=== PATIENT | male | born 1970 | race Caucasian/White ===

== ENCOUNTER → 2017-08-16 | Outpatient (CLI) | payer OTHER ==
[~2017-08-16] MED LIST: ARMOUR THYROID60 M1 PO; BENTYL10 MG PO; CIPROFLOXACIN500 M1 PO; HYDROCODON-ACE1 EAC7 PO; LEVOTHYROXINE 0.1 MG PO; OMEPRAZOLE40 MG PO; PERCOCET; PERCOCET 5-3251 EACH PO; PROCHLORPERAZIN10 MG; TAMSULOSIN HCL0.4 MG PO; ZOFRAN4 MG PO
[2017-08-16 10:35] LABS: CHOLESTEROL 198 mg/dL (<200); HDL CHOLESTEROL 38 mg/dL (>40); LDL CHOLESTEROL 120 mg/dL (<100); TC:HDL 5.2 Ratio (Not establshd); TRIGLYCERIDE 203 mg/dL (<150); VLDL 41 mg/dL (<40)
[2017-08-16 10:36] LABS: SERUM ASSESSMENT Clear
--- NOTE | 2017-08-16 15:32 | TST ---
[place] [address] T[facility]MI[facility] STRESS TEST Name: KARLA FLOWERS Room: [facility]#: [id number] Admission: 08/16/17 Attend Phys: Gerard Lobato MD Discharge: Date of : 74 Date of Service: 08/16/17 1124 Report #: [id number] THIS REPORT FOR: //name// CC: Gerard Storm MD DATE OF SERVICE: 08/16/2017 PROCEDURE: ECG only stress test ORDERING PHYSICIAN: Dr. Gerard Lobato. INDICATION: Chest pain, shortness of breath. Cardiac history is negative. RISK FACTORS: Include tobacco use and family history. MEDICATIONS: No cardiac medications. The patient exercised for 10 minutes. He achieved 96% of age predicted maximal heart rate with METs of 11.76. Resting blood pressure was 129/99 with heart rate of 68, peak blood pressure of 203/93 with heart rate of 169. Recovery blood pressure 150/90 with heart rate of 90. Resting ECG shows a sinus rhythm. During exercise, there were no ST segment abnormalities. There were no arrhythmias. Recovery was normal as well. REASON FOR DISCONTINUATION: Leg pain. The patient reported no chest pain. IMPRESSION: 1. Clinical portion negative for ischemia. 2. Electrocardiographic portion negative for ischemia. 3. Exercise capacity is normal. In conclusion, this study reveals a normal ECG only stress test result. <ELECTRONICALLY SIGNED> By: Mg Atwood MD, FACC 08/16/17 1532 1124 1346 Mg Atwood MD, [facility] /nt
== END ==
LOC: M.CRD 09:58
PROVIDERS: Internal Medicine Cardiovascular Disease
DX: R07.1 Chest pain on breathing (principal); R06.02 Shortness of breath

== ENCOUNTER 2019-12-29 13:37 | Emergency (ER) | payer OTHER ==
[~2019-12-29] VITALS: Ht 175.3 cm; Wt 93.0 kg
[2019-12-29] MEDS ORDERED: NORVASC 2.5 MG2.5 M1 PO (13:42)
[2019-12-29] MEDS ORDERED: COZAAR 25 MG TA25 M1 PO (13:42)
[2019-12-29] MEDS ORDERED: ZPAK PO (14:26)
[2019-12-29] MEDS ORDERED: VENTOLIN HFA 1818 GM INH (14:26)
[2019-12-29 14:32] VITALS: BP 136/78
== END 2019-12-29 14:34 | disposition home or self-care (01) ==
LOC: M.ERS 13:37
DX: U07.1 COVID-19 (principal); I10 Essential (primary) hypertension; E03.9 Hypothyroidism, unspecified

== ENCOUNTER 2020-01-05 11:51 | Emergency (ER) | payer OTHER ==
[~2020-01-05] VITALS: Ht 175.3 cm; Wt 93.0 kg
[~2020-01-05 11:51] MED LIST changes: +COZAAR 25 MG TA25 M1 PO; +NORVASC 2.5 MG2.5 M1 PO; +VENTOLIN HFA 1818 GM INH; +ZPAK PO
[2020-01-05 12:49] LABS: ABSOLUTE BASOPHILS 0.1 thou/uL (0.0-0.2); ABSOLUTE EOSINOPHILS 0.1 thou/uL (0.0-0.7); ABSOLUTE LYMPHOCYTES 1.4 thou/uL (0.8-5.3); ABSOLUTE MONOCYTES 0.5 thou/uL (0.0-1.2); ABSOLUTE NEUTROPHILS 3.7 thou/uL (1.6-8.1); BASOPHILS 0.9 %; HEMATOCRIT 49.6 % (42.0-52.0); HEMOGLOBIN 17.2 gm/dL (14.0-18.0); LYMPHOCYTES 24.6 %; MCHC 34.7 g/dL (28.0-37.0); MCV 89.4 fL (80.0-100.0); MONOCYTES 8.7 %; MPV 8.8 fl. (7.2-11.1); NUCLEATED RBCS 0 /100WBC; PLATELET COUNT* 173 thou/uL (150-400); POLYS 63.8 %; RBC 5.54 mil/uL (4.50-6.00); RDW-CV 12.8 % (10.5-14.5); WBC 5.8 thou/uL (4.0-11.0)
[2020-01-05 13:01] LABS: ANION GAP 5 mmol/L (7-16); APTT 25.6 Seconds (25.0-31.3); BUN 16 mg/dL (7-18); CALCIUM 8.6 mg/dL (8.5-10.1); CHLORIDE 106 mmol/L (98-107); CO2 29 mmol/L (21-32); GLUCOSE 92 mg/dL (70-99); POTASSIUM 4.4 mmol/L (3.5-5.1); PROTIME 10.5 Seconds (9.20-11.50); SODIUM 140 mmol/L (136-145)
[2020-01-05 13:13] LABS: ALBUMIN 3.9 g/dL (3.4-5.0); ALKALINE PHOSPHATASE 74 U/L (46-116); CK-MB MASS < 0.5 ng/mL (<0.5-3.6); LIPASE 174 U/L (73-393); NT-PRO BRAIN NAT PEPTIDE 10 pg/mL (<300); SGOT 29 U/L (15-37); SGPT 66 U/L (30-65); TOTAL BILIRUBIN 0.4 mg/dL (<0.1-1.0); TOTAL PROTEIN 7.1 g/dL (6.4-8.2)
[2020-01-05] MEDS ORDERED: TESSALON PERLE100 MG PO (13:42)
[2020-01-05] MEDS ORDERED: APAP W/CODEINE1 TA2 PO (13:42)
[2020-01-05] MEDS ORDERED: PROMETHAZI6.25 MG/5 PO (13:42)
[2020-01-05] MEDS ORDERED: PREDNISONE 20 M20 MG PO (13:42)
[2020-01-05 13:50] VITALS: BP 113/68
--- NOTE | 2020-01-06 09:04 | EKG ---
[place] [address] ELECTROCARDIOGRAM REPORT Name: KARLA FLOWERS Room: [facility]#: [id number] Admission: 01/05/20 Attend Phys: Discharge: 01/05/20 Date of : 74 Date of Service: 01/05/20 1236 Report #: [id number] THIS REPORT FOR: //name// [facility] ED Test Date: 2020-01-05 Test Time: 12:36:59 Pat Name: KARLA FLOWERS Department: Room: Gender: Outpatient Interviewing Clerk: JEFF : 1970 Requested By: Chris Goldman Order Number: [id number] MD: Faisal Brady Measurements Intervals [place] Rate: 63 P: 36 DE: 177 QRS: 6 QRSD: 90 T: 23 QT: 378 QTc: 387 Interpretive Statements Sinus rhythm Baseline wander in lead(s) V1 Compared to ECG 12/31/2011 08:21:39 Sinus bradycardia no longer present Electronically Signed On 01-06-2020 9:04:21 DRY PAN OPERATOR by Faisal Brady [email or web address] <ELECTRONICALLY SIGNED> By: Chucky Brady MD, FAC 01/06/20 0904 1236 1236 Chucky Brady MD, [facility] /EPI
== END 2020-01-05 13:52 | disposition home or self-care (01) ==
LOC: M.ERS 11:51
PROVIDERS: Family Medicine
DX: U07.1 COVID-19 (principal); I10 Essential (primary) hypertension; E03.9 Hypothyroidism, unspecified; Z79.2 Long term (current) use of antibiotics; Z79.899 Other long term (current) drug therapy; Z88.0 Allergy status to penicillin

== ENCOUNTER → 2020-06-04 | Outpatient (CLI) | payer OTHER ==
[~2020-06-04] MED LIST changes: +APAP W/CODEINE1 TA2 PO; +PREDNISONE 20 M20 MG PO; +PROMETHAZI6.25 MG/5 PO; +TESSALON PERLE100 MG PO
== END ==
LOC: M.CT 05-28 13:15
PROVIDERS: ATTEND Internal Medicine Cardiovascular Disease
DX: Z13.6 Encounter for screening for cardiovascular disorders (principal)